=== PATIENT | male | born 1980 ===

== ENCOUNTER 2021-02-27 17:31 | Emergency (ER) | payer MEDICAID ==
[~2021-02-27] VITALS: Ht 167.6 cm; Wt 79.3 kg
[2021-02-27 17:35] VITALS: BP 123/70
--- NOTE | 2021-02-27 17:37 | NUR ---
THU RN: THIS IS A 40 YEAR OLD MALE WHO WAS BIB AMBULANCE. PT WAS FOUND DOWN BY THE [facility], WITH WISKEY AND STATES HE TOOK METH. PT IS ALERT TO SELF, AND TEARFUL. EXPLAINED PLAN OF CARE. CONTINOUS SP02 ON PT SAT 91-93%RA. REPORT TO [facility], PLAN OF CARE DISCUSSED
== END 2021-02-27 18:11 | disposition left against medical advice (07) ==
LOC: ED 18:08
DX: F10.129 Alcohol abuse with intoxication, unspecified (principal); Z53.21 Procedure and treatment not carried out due to patient leaving prior to being seen by health care provider; Y90.0 Blood alcohol level of less than 20 mg/100 ml

== ENCOUNTER 2021-02-27 18:44 | Emergency (ER) | payer MEDICAID ==
[~2021-02-27] VITALS: Ht 167.6 cm; Wt 70.1 kg
--- NOTE | 2021-02-27 18:54 | NUR ---
PT BIB [facility] FOR LUIS A INTOXICATION AND BEING UNABLE TO AMBULATE. PT WAS HERE FOR SAME EARLIER. VSS. PT PLACED ON O2 BECAUSE ROOM AIT SATS DROPPED WHEN HE FELL ASLEEP
--- NOTE | 2021-02-27 19:20 | NUR ---
ERP AT BEDSIDE
[2021-02-27] MEDS ORDERED: ZIPRASIDONE 20 MG INJ IM ONE (20:30)
--- NOTE | 2021-02-27 21:03 | NUR ---
PT KEEPS GETTING OUT OF BED. PT REDIRECTED AN PUT BACK IN BED
--- NOTE | 2021-02-27 21:33 | NUR ---
pt ambulated to bathroom with a steady gait. pt requesting to leave. notified. Pt given discharge papers and bus pass. pt ambulated out of er with a steady gait.
[2021-02-27 21:35] VITALS: BP 119/78
== END 2021-02-27 21:37 ==
LOC: ED 21:31
DX: F10.229 Alcohol dependence with intoxication, unspecified (principal); Y90.0 Blood alcohol level of less than 20 mg/100 ml
CPT/HCPCS: 99283